=== PATIENT | female | born 2000 | race Caucasian/White ===

== ENCOUNTER 2021-03-15 09:33 | Emergency (ER) | payer MEDICAID, SELFPAY ==
[2021-03-15 11:06] VITALS: BP 115/72; RESP 18; TEMP 36.6; O2SAT 98; BMI 16.0
[2021-03-15 11:43] LABS: MANUAL DIFF FLAG NO
[2021-03-15 11:45] LABS: Basophils Absolute Auto 0.1 X10*3/uL (0.0-0.2); Basophils Percent Auto 0.6 % (0-2); Eosinophils Percent Auto 0.4 % (0-4); Hemoglobin 12.1 g/dl (12.0-16.0); Imm Gran Abs Auto 0.02 X10*3/uL (0.00-0.03); Imm Gran Pct Auto 0.2 % (0.0-0.4); Lymphocytes Absolute Auto 1.3 X10*3/uL (1.2-4.9); Lymphocytes Percent Auto 13.1 % (20-40); Mean Corpuscular HGB Conc 32.7 g/dl (31.0-35.0); Mean Corpuscular Hemoglobin 27.6 pg (27.0-33.0); Mean Corpuscular Volume 84.5 fL (80-98); Mean Platelet Volume 9.7 fL (9.4-12.3); Monocytes Absolute Auto 0.6 X10*3/uL (0.1-1.2); Monocytes Percent Auto 6.4 % (2-11); Neutrophils Absolute Auto 7.9 X10*3/uL (2.0-8.3); Neutrophils Percent Auto 79.3 % (45-73); Platelet Count 263 X10*3/uL (160-400); Red Blood Count 4.38 X10*6/uL (4.20-5.50); Red Cell Distribution Width 14.3 % (11.0-16.0)
[2021-03-15 11:50] LABS: Glucose Urine UA NEG (NEG); Leukocyte Esterase Urine 1+ (NEG); Nitrite Urine POS (NEG); PH 5.5 (5.0-8.0); Specific Gravity - Urine >= 1.030 (1.005-1.025); UACC Culture Trigger YES; Urine Blood 3+ (NEG); Urine Ketones NEG (NEG); Urine Protein 2+ MG/DL (NEG-TRACE)
[2021-03-15 11:54] LABS: Appearance Urine CLOUDY; Color Urine BROWN
[2021-03-15 11:55] LABS: UPreg QC Valid YES; Urine Pregnancy NEGATIVE (NEGATIVE)
[2021-03-15 12:14] LABS: Bacteria Urine TRACE /LPF; RBC Urine TNTC /HPF (0); Squamous Epithelial Cell Urine 1+ /LPF; WBC Urine 30-49 /HPF (0-4)
[2021-03-15 12:15] LABS: Alanine Aminotransferase 9 U/L (0-31); Albumin Level 4.6 g/dL (3.5-5.0); Alkaline Phosphatase 56 U/L (39-117); Anion Gap 13 (12-20); Aspartate Amino Transferase 16 U/L (5-31); Bilirubin Total 0.2 mg/dL (0.0-1.0); Blood Urea Nitrogen 7 mg/dL (9-16); Calcium 9.6 mg/dL (8.4-10.2); Carbon Dioxide 23 mmol/L (22-29); Chloride 109 mmol/L (96-108); Creatinine Clr Calc Pharmacy 71.6; Estimated Glomerular Filt Rate > 60; Glucose Random 87 mg/dL (60-115); Mucus Urine 3+ /LPF; Oval Fat Bodies Urine NOTED; Potassium 3.9 mmol/L (3.3-5.1); Sodium 141 mmol/L (135-145); Total Protein 7.3 g/dL (6.5-8.0)
--- NOTE | 2021-03-15 13:22 | ED_ITS ---
HPI - Female Genitourinary General Chief complaint: Urogenital-Female Stated complaint: Abd pain, burning when urinates Time Seen by Provider: 03/15/21 13:15 History of Present Illness HPI Narrative: Patient is a 21-year-old female complaining of burning urination some blood in her urine for the last 3 days. Increasing frequency. Positive lower abdominal pain. No difficulty with bowel movement. No flank pain. No nausea no vomiting. Patient is from home. History UTIs in the past. Related Data Previous Rx's Medication Instructions Recorded phenazopyridine 200 mg tablet 200 mg PO TID PRN #7 tab 03/15/21 (Pyridium) sulfamethoxazole 800 1 tab PO BID 7 Days #14 tab 03/15/21 mg-trimethoprim 160 mg tablet (Bactrim DS) Allergies Allergy/AdvReac Type Severity Reaction Status Date / Time No Known Allergies Allergy Unverified 04/22/20 19:43 [No Known Allergies*] Review of Systems Review of Systems: No fever no chills Positive frequency Positive pain on urination All systems reviewed otherwise negative [facility] Past Medical History Attestation statement: The following information was validated with the patient. Social History Social History Advance Directives: Yes Advance Directives Information Provided: Yes Advance Directives on File: No Patient : No Physical Exam Vital Signs: Vital Signs: Last Vital Signs Temp 98 F 03/15/21 11:06 Resp 18 03/15/21 11:06 BP 115/72 03/15/21 11:06 Pulse Ox 98 03/15/21 11:06 Body Mass Index 16.0 Appearance: Alert. Oriented X3. No acute distress. Eyes: Pupils equal, round and reactive to light. ENT: Pharynx normal. Neck: Normal inspection. Neck supple. No lymph nodes noted. No crepitus CVS: Normal heart rate and rhythm. Pulses normal. Normal S1 and S2 Respiratory: No respiratory distress. Breath sounds normal. No Wheezing. No rales Abdomen: Soft and nontender. No rigidity. No distention. good BS x4 Skin: Skin warm and dry. Normal skin color. Normal skin turgor. Extremities: No lower extremity edema. Neurovascular intact to all extremities. No Lacerations. No Rash Neuro: Oriented X 3. No motor deficit. No sensory deficit. Moving all extermities. No slurred speech MDM - Female Genitourinary MDM Narrative Medical decision making narrative: Well-appearing no acute distress. Urine grossly infected. Patient not . Will start patient on Bactrim. Pyridium for symptom relief. Will discharge patient home. Currently in stable condition. Lab Data Result diagrams: 03/15/21 11:33 03/15/21 11:33 Labs: Lab Results 03/15/21 03/15/21 03/15/21 Range/Units 11:33 11:33 11:33 WBC 10.0 (4.8-10.8) X10*3/uL RBC 4.38 (4.20-5.50) X10*6/uL Hgb 12.1 (12.0-16.0) g/dl Hct 37.0 (37-47) % MCV 84.5 (80-98) fL MCH 27.6 (27.0-33.0) pg MCHC 32.7 (31.0-35.0) g/dl RDW 14.3 (11.0-16.0) % Plt Count 263 (160-400) X10*3/uL MPV 9.7 (9.4-12.3) fL Immature Gran % (Auto) 0.2 (0.0-0.4) % Neut % (Auto) 79.3 H (45-73) % Lymph % (Auto) 13.1 L (20-40) % Levy % (Auto) 6.4 (2-11) % Eos % (Auto) 0.4 (0-4) % Baso % (Auto) 0.6 (0-2) % Lymph # (Auto) 1.3 (1.2-4.9) X10*3/uL Levy # (Auto) 0.6 (0.1-1.2) X10*3/uL Eos # (Auto) 0.0 (0.0-0.4) X10*3/uL Baso # (Auto) 0.1 (0.0-0.2) X10*3/uL Abs Immat Gran (auto) 0.02 (0.00-0.03) X10*3/uL Absolute Neuts (auto) 7.9 (2.0-8.3) X10*3/uL Absolute Nucleated RBC 0.000 (0.0-0.012) X10*3/uL Nucleated RBC % (auto) 0.0 (0.0-0.2) /100WBC Sodium 141 (135-145) mmol/L Potassium 3.9 (3.3-5.1) mmol/L Chloride 109 H (96-108) mmol/L Carbon Dioxide 23 (22-29) mmol/L Anion Gap 13 (12-20) BUN 7 L (9-16) mg/dL Creatinine 0.79 (0.5-1.4) mg/dL Estim Creat Clear Calc 71.6 Estimated GFR > 60 Random Glucose 87 (60-115) mg/dL Calcium 9.6 (8.4-10.2) mg/dL Total Bilirubin 0.2 (0.0-1.0) mg/dL AST 16 (5-31) U/L ALT 9 (0-31) U/L Alkaline Phosphatase 56 (39-117) U/L Total Protein 7.3 (6.5-8.0) g/dL Albumin 4.6 (3.5-5.0) g/dL Urine Color BROWN Urine Appearance CLOUDY Urine pH 5.5 (5.0-8.0) Ur Specific [place] >= 1.030 H (1.005-1.025) Urine Protein 2+ H (NEG-TRACE) MG/DL Urine Glucose (UA) NEG (NEG) MG/DL Urine Ketones NEG (NEG) MG/DL Urine Blood 3+ H (NEG) Urine Nitrite POS H (NEG) Ur Leukocyte Esterase 1+ H (NEG) Urine RBC TNTC H (0) /HPF Urine WBC 30-49 H (0-4) /HPF Ur Squamous Epith Cells 1+ /LPF Urine Bacteria TRACE /LPF Urine Mucus 3+ /LPF Ur Oval Fat Bodies NOTED (NONE) Urine Test (NEGATIVE) 03/15/21 Range/Units 11:33 WBC (4.8-10.8) X10*3/uL RBC (4.20-5.50) X10*6/uL Hgb (12.0-16.0) g/dl Hct (37-47) % MCV (80-98) fL MCH (27.0-33.0) pg MCHC (31.0-35.0) g/dl RDW (11.0-16.0) % Plt Count (160-400) X10*3/uL MPV (9.4-12.3) fL Immature Gran % (Auto) (0.0-0.4) % Neut % (Auto) (45-73) % Lymph % (Auto) (20-40) % Levy % (Auto) (2-11) % Eos % (Auto) (0-4) % Baso % (Auto) (0-2) % Lymph # (Auto) (1.2-4.9) X10*3/uL Levy # (Auto) (0.1-1.2) X10*3/uL Eos # (Auto) (0.0-0.4) X10*3/uL Baso # (Auto) (0.0-0.2) X10*3/uL Abs Immat Gran (auto) (0.00-0.03) X10*3/uL Absolute Neuts (auto) (2.0-8.3) X10*3/uL Absolute Nucleated RBC (0.0-0.012) X10*3/uL Nucleated RBC % (auto) (0.0-0.2) /100WBC Sodium (135-145) mmol/L Potassium (3.3-5.1) mmol/L Chloride (96-108) mmol/L Carbon Dioxide (22-29) mmol/L Anion Gap (12-20) BUN (9-16) mg/dL Creatinine (0.5-1.4) mg/dL Estim Creat Clear Calc Estimated GFR Random Glucose (60-115) mg/dL Calcium (8.4-10.2) mg/dL Total Bilirubin (0.0-1.0) mg/dL AST (5-31) U/L ALT (0-31) U/L Alkaline Phosphatase (39-117) U/L Total Protein (6.5-8.0) g/dL Albumin (3.5-5.0) g/dL Urine Color Urine Appearance Urine pH (5.0-8.0) Ur Specific [place] (1.005-1.025) Urine Protein (NEG-TRACE) MG/DL Urine Glucose (UA) (NEG) MG/DL Urine Ketones (NEG) MG/DL Urine Blood (NEG) Urine Nitrite (NEG) Ur Leukocyte Esterase (NEG) Urine RBC (0) /HPF Urine WBC (0-4) /HPF Ur Squamous Epith Cells /LPF Urine Bacteria /LPF Urine Mucus /LPF Ur Oval Fat Bodies (NONE) Urine Test NEGATIVE (NEGATIVE) Discharge Plan Discharge Clinical Impression: Urinary tract infection Patient Disposition: Home, Self-Care Instructions: Urinary Tract Infection in Women (ED) Prescriptions: New phenazopyridine [Pyridium] 200 mg tablet 200 mg PO TID PRN (Reason: pain) Qty: 7 RF: 0 sulfamethoxazole-trimethoprim [Bactrim DS] 800-160 mg tablet 1 tab PO BID 7 Days Qty: 14 RF: 0 Referrals: Physician,Unknown [Primary Care Provider] - 2 days
== END 2021-03-15 13:45 | disposition home or self-care (01) ==
PROVIDERS: Emergency Provider Emergency Medicine Emergency Medical Services
DX: N39.0 Urinary tract infection, site not specified (principal); R10.30 Lower abdominal pain, unspecified
CPT/HCPCS: 36415; 80053; 81001; 81025; 85025; 87086; 99283

== ENCOUNTER 2021-03-29 08:59 | Emergency (ER) | payer MEDICAID, SELFPAY ==
--- NOTE | ~2021-03-29 | XR_ITS ---
EXAMINATION: XR CHEST CLINICAL INFORMATION: Chest pain. COMPARISON: None TECHNIQUE: Frontal view of the chest was obtained. FINDINGS: No significant abnormality is noted involving the heart, lungs, mediastinum, bony thorax or soft tissues. XR/XR chest 1V IMPRESSION: No acute cardiopulmonary process.
[2021-03-29 10:39] VITALS: BP 118/84; PULSE 89; RESP 18; TEMP 37.1; O2SAT 96; BMI 16.0
[2021-03-29 12:07] VITALS: BP 105/69; PULSE 91; RESP 16; TEMP 36.7; O2SAT 99
--- NOTE | 2021-03-29 12:35 | ECG_ITS ---
Test Reason : CHEST PAIN Blood Pressure : / mmHG Vent. Rate : 075 BPM Atrial Rate : 075 BPM P-R Int : 160 ms QRS Dur : 070 ms QT Int : 400 ms P-R-T Axes : 075 081 056 degrees QTc Int : 446 ms Normal sinus rhythm Low voltage QRS Nonspecific T wave abnormality Abnormal ECG No previous ECGs available Referred By: Toi Gil Electronically Signed By:HERO BAH
[2021-03-29 13:01] LABS: COVID-19 Test Positive (Negative)
--- NOTE | 2021-03-29 14:10 | ED_ITS ---
HPI - General Adult General Chief complaint: General Medical Stated complaint: sore throat, cough, diff breathing Time Seen by Provider: 03/29/21 12:35 History of Present Illness HPI narrative: Patient complains of cough body aches fever for past 2 days In addition she complains of an episode last night where she was startled awake and had some pain in her chest and felt like her heart was racing as well as some tingling in her fingertips and feeling anxious, she does not have this fe rodrigo now Related Data Previous Rx's Medication Instructions Recorded phenazopyridine 200 mg tablet 200 mg PO TID PRN #7 tab 03/15/21 (Pyridium) sulfamethoxazole 800 1 tab PO BID 7 Days #14 tab 03/15/21 mg-trimethoprim 160 mg tablet (Bactrim DS) cetirizine 10 mg capsule (Zyrtec) 10 mg PO DAILY #14 cap 04/12/21 fluticasone propionate 50 2 spray INTRANASAL DAILY #16 g 04/12/21 mcg/actuation nasal spray,suspension (Flonase Allergy Relief) Allergies Allergy/AdvReac Type Severity Reaction Status Date / Time No Known Allergies Allergy Unverified 04/22/20 19:43 [No Known Allergies*] Review of Systems Review of Systems: Positive for cough and body aches as well as an episode of palpitations associated with some chest pain and anxiety Negatives are no fever no chills no dizziness no weakness no headache no sore throat no neck pain no shortness of breath no sputum no exertional chest pain no sweating no nausea vomiting no abdominal pain no calf pain or swelling no numbness weakness Yes all other systems are reviewed and are negative [facility] Past Medical History Source: nursing notes reviewed Medical History (Updated 04/13/21 @ 00:02 by Jack Jang) Hypoglycemia Social History Social History Advance Directives: No Advance Directives Information Provided: No Patient : No Physical Exam Vital Signs: Vital Signs: Last Vital Signs Temp 98.1 F 03/29/21 12:07 Pulse 91 03/29/21 12:07 Resp 16 03/29/21 12:07 BP 105/69 03/29/21 12:07 Pulse Ox 99 03/29/21 12:07 Body Mass Index 16.0 General appearance no acute distress The eyes are clear no redness or discharge The pharynx is clear with no redness swelling or exudate Neck is supple Chest clear to auscultation bilateral Heart no murmur Abdomen soft nontender Extremities no calf swelling no edema no calf tenderness Skin no rashes Neuro no focal deficits Course Course Course Narrative: EKG was normal sinus rhythm with a rate of 75, intervals were normal, no acute ischemic change Chest x-ray was normal COVID testing was positive Patient's brief episode of waking in the night with palpitations and a feeling of chest heaviness with normal EKG, normal vital signs, all negative by PERC rule is likely to have had a brief anxiety reaction Otherwise well-appearing patient is informed of the results and is discharged Medical Decision Making Lab Data Labs: Lab Results 03/29/21 Range/Units 12:43 COVID-19 (MELISSA) Positive A (Negative) COVID-19 Clin Com See Note Discharge Plan Discharge Clinical Impression: COVID-19 Patient Disposition: Home, Self-Care Additional Instructions: EKG and chest x-ray did not show any significant abnormality Your chest pain after being woken last night was probably an anxiety reaction Our testing for COVID was positive so you need to wear a mask around people, keep a distance from people a specially elderly people Return any time any worse condition or any concerns You could use Tylenol or Motrin [id number] if needed for any aches and pains Prescriptions: No Action phenazopyridine [Pyridium] 200 mg tablet 200 mg PO TID PRN (Reason: pain) Qty: 7 RF: 0 sulfamethoxazole-trimethoprim [Bactrim DS] 800-160 mg tablet 1 tab PO BID 7 Days Qty: 14 RF: 0 Zyrtec 10 mg capsule 10 mg PO DAILY Qty: 14 RF: 0 fluticasone propionate [Flonase Allergy Relief] 50 mcg/actuation spray,suspension 2 spray intranasal DAILY Qty: 16 RF: 0 Stand Alone Forms: Work/School Release Interventions: ED Discharge Assessment Last Done: 03/29/21 14:16 Discharge Date/Time: 03/29/21 14:17
== END 2021-03-29 14:17 | disposition home or self-care (01) ==
PROVIDERS: Physician Assistant Medical; Emergency Provider Emergency Medicine
DX: U07.1 COVID-19 (principal)
CPT/HCPCS: 36415; 71045; 87635; 93005; 99283; 99284

== ENCOUNTER 2021-04-12 08:53 | Emergency (ER) | payer MEDICAID, SELFPAY ==
[2021-04-12 09:11] VITALS: BP 114/70; PULSE 94; RESP 16; TEMP 37; O2SAT 98; BMI 19.5
--- NOTE | 2021-04-12 10:00 | ED_ITS ---
HPI - General Adult General Chief complaint: General Medical Stated complaint: + covid - headache, ear problem Time Seen by Provider: 04/12/21 09:46 Source: patient Mode of arrival: ambulatory History of Present Illness HPI narrative: 21-year-old female COVID-19 positive on 03/29 presenting to the ED complaining of intermittent right ear muffled hearing since yesterday and scratchy throat. Requesting note to return to work. Denies fever, chills, SOB, CP, recent travel, abdominal pain, drainage from ear/swimming, difficulty swallowing Onset (ago): week(s) Related Data Previous Rx's Medication Instructions Recorded phenazopyridine 200 mg tablet 200 mg PO TID PRN #7 tab 03/15/21 (Pyridium) sulfamethoxazole 800 1 tab PO BID 7 Days #14 tab 03/15/21 mg-trimethoprim 160 mg tablet (Bactrim DS) cetirizine 10 mg capsule (Zyrtec) 10 mg PO DAILY #14 cap 04/12/21 fluticasone propionate 50 2 spray INTRANASAL DAILY #16 g 04/12/21 mcg/actuation nasal spray,suspension (Flonase Allergy Relief) Allergies Allergy/AdvReac Type Severity Reaction Status Date / Time No Known Allergies Allergy Unverified 04/22/20 19:43 [No Known Allergies*] Review of Systems Review of Systems: Constitutional: No Fever, No Chills ENT/Mouth: + Ear Pain, + Nasal Congestion, + Sinus Pain, No Hoarseness, + sore throat, + Rhinorrhea, No Swallowing Difficulty Cardiovascular: No Chest Pain, No SOB Respiratory: No Cough, No Sputum, No Wheezing Gastrointestinal: No Nausea, No Vomiting, No Abdominal pain Genitourinary:, No Dysuria, No Urinary Frequency, No Hematuria, No Flank Pain Musculoskeletal: No joint pain, No Myalgias, No Joint Swelling Skin: No Skin Lesions, No rash Neuro: No Weakness, No Numbness, No Paresthesias, +intermittent ELIZALDE Yes all other systems are reviewed and are negative [facility] Past Medical History Attestation statement: The following information was validated with the patient. Medical History (Updated 04/12/21 @ 10:00 by BRYAN Pickett) Hypoglycemia Social History Social History Advance Directives: No Advance Directives Information Provided: No Patient : No Physical Exam Vital Signs: Vital Signs: Last Vital Signs Temp 98.6 F 04/12/21 09:11 Pulse 94 04/12/21 09:11 Resp 16 04/12/21 09:11 BP 114/70 04/12/21 09:11 Pulse Ox 98 04/12/21 09:11 Body Mass Index 19.5 Const: General: cooperative and healthy appearing O rientation/consciousness: patient oriented x3 Limitations: no limitations HENMT: Head: Yes normal to inspection Ears: hearing grossly normal bilaterally, external ears normal, TM's normal bilaterally, TM normal on the right, mastoids normal and no periauricular adenopathy General nose exam: Normal external nose present Face and sinus: Yes normal facial exam Mouth: Normal oral and palatal mucosa present Throat: Yes posterior oropharynx normal, Yes tonsils normal, Yes uvula midline, No peritonsillar mass and No uvular edema Eyes: General: appearance normal, both eyes and all related structures EOM: EOMs intact bilaterally Neck: Neck: Yes normal visual inspection, Yes full ROM, Yes no lymphadenopathy, Yes no meningeal signs, Yes trachea midline and Yes supple Resp: Effort & Inspection: normal respiratory effort, not labored and no respiratory distress Cardio: Rate: regular rate Skin: Rashes: no rashes Wounds: no wounds Neuro: General: patient oriented x3 and no meningeal signs Gait exam (Neuro): Normal gait present Extrem: General: Yes normal to inspection Medical Decision Making MDM Narrative Medical decision making narrative: 21-year-old female COVID-19 positive on 03/29 presenting to the ED complaining of intermittent right ear muffled hearing since yesterday and scratchy throat. Requesting note to return to work. On exam VSS, NAD/well-appearing, exam nonfocal. Likely viral syndrome/postnasal drip. No evidence of otitis media/externa. Mastoids WNL Will give Flonase/Zyrtec Discharge Plan Discharge Clinical Impression: Acute viral syndrome Patient Disposition: Home, Self-Care Instructions: Viral Syndrome (ED) Additional Instructions: Flonase a nasal decongestant spray Zyrtec is for allergies/will help clear her sinuses You have been self isolated for 14 days, you are cleared to return to work Prescriptions: New Zyrtec 10 mg capsule 10 mg PO DAILY Qty: 14 RF: 0 fluticasone propionate [Flonase Allergy Relief] 50 mcg/actuation spray,suspension 2 spray intranasal DAILY Qty: 16 RF: 0 No Action phenazopyridine [Pyridium] 200 mg tablet 200 mg PO TID PRN (Reason: pain) Qty: 7 RF: 0 sulfamethoxazole-trimethoprim [Bactrim DS] 800-160 mg tablet 1 tab PO BID 7 Days Qty: 14 RF: 0 Referrals: [facility] [Primary Care Provider] - 2 days Stand Alone Forms: Work/School Release
== END 2021-04-12 10:30 | disposition home or self-care (01) ==
PROVIDERS: Emergency Provider Emergency Medicine
DX: B34.9 Viral infection, unspecified (principal)
CPT/HCPCS: 99283

== ENCOUNTER 2022-02-02 11:16 | Emergency (ER) | payer MEDICAID, SELFPAY ==
[2022-02-02 11:30] VITALS: BP 112/71; PULSE 74; RESP 14; TEMP 36.6; O2SAT 100; BMI 16.0
[2022-02-02 11:53] LABS: Appearance Urine HAZY; Color Urine YELLOW; Glucose Urine UA NEG (NEG); Leukocyte Esterase Urine NEG (NEG); Nitrite Urine NEG (NEG); Specific Gravity - Urine 1.025 (1.005-1.025); Urine Blood NEG (NEG); Urine Ketones 5 MG/DL (NEG); Urine Protein NEG (NEG-TRACE)
[2022-02-02 11:54] LABS: UPreg QC Valid YES; Urine Pregnancy NEGATIVE (NEGATIVE)
[2022-02-02 12:21] LABS: COVID-19 Test Negative (Negative)
[2022-02-02 12:22] LABS: IDNOW Serial# 55D5AD1C; Influenza A Negative (Negative); Influenza B2 Negative (Negative)
== END 2022-02-02 15:48 | disposition left against medical advice (07) ==
LOC: HO.ED 14:57
PROVIDERS: Emergency Provider Emergency Medicine
DX: R51.9 Headache, unspecified (principal); R42 Dizziness and giddiness; R11.0 Nausea; Z20.822 Contact with and (suspected) exposure to COVID-19
CPT/HCPCS: 81003; 81025; 87502; 87635; 99282; 99283

== ENCOUNTER 2022-08-19 23:22 | Emergency (ER) | payer MEDICAID, SELFPAY ==
[2022-08-19 23:30] VITALS: BP 130/88; PULSE 118; RESP 16; TEMP 36.9; O2SAT 98; BMI 16.2
[2022-08-19 23:42] VITALS: BP 107/72; PULSE 82; RESP 16; TEMP 36.9; O2SAT 97
--- NOTE | 2022-08-20 00:07 | MHC.EDTECH ---
this pct assumed care of patient at 2330 ,vitals sign taken ,call [facility] within reach .
--- NOTE | 2022-08-20 00:33 | ED_ITS ---
HPI - Skin/Abscess/Foreign Bdy General Chief complaint: Skin/Abscess/Foreign Body Stated complaint: lower extremity infection? Time Seen by Provider: 08/20/22 00:13 Source: patient Mode of arrival: ambulatory Limitations: no limitations History of Present Illness HPI narrative: Patient has small ingrown hair on the right leg for last 2- 3 days got worse now with surrounding redness and pain Related Data Previous Rx's Medication Instructions Recorded phenazopyridine 200 mg tablet 200 mg PO TID PRN pain 6 doses #7 03/15/21 (Pyridium) tabs sulfamethoxazole 800 1 tab PO BID 7 days #14 tabs 03/15/21 mg-trimethoprim 160 mg tablet (Bactrim DS) cetirizine 10 mg capsule (Zyrtec) 10 mg PO DAILY #14 caps 04/12/21 fluticasone propionate 50 2 spray intranasal DAILY #16 grams 04/12/21 mcg/actuation nasal spray,suspension (Flonase Allergy Relief) cephalexin 500 mg capsule 500 mg PO QID 10 days #40 caps 08/20/22 doxycycline hyclate 100 mg tablet 100 mg PO BID #20 tabs 08/20/22 mupirocin 2 % topical ointment 1 appl topical BID #15 grams 08/20/22 Allergies Allergy/AdvReac Type Severity Reaction Status Date / Time No Known Allergies Allergy Verified 08/19/22 23:36 [No Known Allergies*] Review of Systems Review of Systems: Yes all other systems are reviewed and are negative [facility] Past Medical History Medical History Hypoglycemia Social History Social History Advance Directives: No Advance Directives Information Provided: No Physical Exam Vital Signs: Vital Signs: Last Vital Signs Temp 98.5 F 08/19/22 23:42 Pulse 82 08/19/22 23:42 Resp 16 08/19/22 23:42 BP 107/72 08/19/22 23:42 Pulse Ox 97 08/19/22 23:42 O2 Del Method 08/19/22 23:42 BMI result Body Mass Index 16.2 Const: General: cooperative and healthy appearing Extrem: Upper/lower leg/hip images: 1. Small folliculitis surrounding cellulitis size of a nickel Medications Administered Discontinued Medications Generic Name Dose Route Start Last Admin Trade Name Koq PRN Reason Stop Dose Admin Bacitracin 1 appl 08/20/22 00:51 08/20/22 01:08 Bacitracin Oint 14 Gm Tube TOPICAL 08/20/22 00:52 1 appl ONCE ONE Administration Protocol Cephalexin HCl 500 mg 08/20/22 00:51 08/20/22 01:06 Cephalexin 500 Mg Capsule PO 08/20/22 00:52 500 mg ONCE ONE Administration Doxycycline Monohydrate 100 mg 08/20/22 00:51 08/20/22 01:06 Doxycycline Monohydrate 100 Mg Capsule PO 08/20/22 00:52 100 mg ONCE ONE Administration Medical Decision Making Medical Decision Making [facility] Narrative: Patient with small folliculitis with surrounding cellulitis needle was used to puncture it and small amount of pus expressed discharge patient home on doxycycline and cephalexin Discharge Plan Discharge Clinical Impression: Staph skin infection Patient Disposition: Home, Self-Care Instructions: Cellulitis (ED), Folliculitis (ED) Additional Instructions: Take antibiotic as prescribed Local care as advised Prescriptions: New cephalexin 500 mg capsule 500 mg PO QID 10 Days Qty: 40 0RF doxycycline hyclate 100 mg tablet 100 mg PO BID Qty: 20 0RF mupirocin 2 % ointment 1 appl topical BID Qty: 15 0RF No Action phenazopyridine [Pyridium] 200 mg tablet 200 mg PO TID PRN (Reason: pain) Qty: 7 0RF sulfamethoxazole-trimethoprim [Bactrim DS] 800-160 mg tablet 1 tab PO BID 7 Days Qty: 14 0RF Zyrtec 10 mg capsule 10 mg PO DAILY Qty: 14 0RF fluticasone propionate [Flonase Allergy Relief] 50 mcg/actuation spray ,suspension 2 spray intranasal DAILY Qty: 16 0RF Rx Instructions: administer into each nostril Interventions: ED Discharge Assessment Last Done: 08/20/22 01:09 Discharge Date/Time: 08/20/22 01:09
--- NOTE | 2022-08-20 01:00 | MHC.EDTECH ---
bacitracin ointment and bandage apple to patient right leg below the knee .
[2022-08-20] MEDS: cephALEXin 500 MG CAPSULE PO (01:06)
[2022-08-20] MEDS: Doxycycline Monohydrate 100 MG CAPSULE PO (01:06)
[2022-08-20] MEDS: Bacitracin Oint 14 GM TUBE 1 APPL TOPICAL (01:08)
== END 2022-08-20 01:09 | disposition home or self-care (01) ==
PROVIDERS: Emergency Provider Internal Medicine
DX: L73.1 Pseudofolliculitis barbae (principal); Z79.899 Other long term (current) drug therapy
CPT/HCPCS: 99283

== ENCOUNTER 2023-02-09 20:26 | Emergency (ER) | payer MEDICAID, SELFPAY ==
[2023-02-09 20:29] VITALS: BP 102/64; PULSE 86; RESP 20; TEMP 36.7; O2SAT 94; BMI 15.9
--- NOTE | 2023-02-09 21:41 | ED.FEMALEGU ---
HPI - Female Genitourinary General Chief complaint: Abdominal Pain Stated complaint: ?UTI Time Seen by Provider: 02/09/23 21:37 Source: patient Mode of arrival: ambulatory Limitations: no limitations History of Present Illness HPI Narrative: Patient history of recurrent UTI been having dysuria for last 2 days with frequency and slight amount of blood when she urinates took azo over the counter much response history of similar UTI about 2 months ago no vaginal discharge no history of kidney stone no fever no chills no nausea no vomiting Related Data Previous Rx's Medication Instructions Recorded phenazopyridine 200 mg tablet 200 mg PO TID PRN pain 6 doses #7 03/15/21 (Pyridium) tabs sulfamethoxazole 800 1 tab PO BID 7 days #14 tabs 03/15/21 mg-trimethoprim 160 mg tablet (Bactrim DS) cetirizine 10 mg capsule (Zyrtec) 10 mg PO DAILY #14 caps 04/12/21 fluticasone propionate 50 2 spray intranasal DAILY #16 grams 04/12/21 mcg/actuation nasal spray,suspension (Flonase Allergy Relief) cephalexin 500 mg capsule 500 mg PO QID 10 days #40 caps 08/20/22 doxycycline hyclate 100 mg tablet 100 mg PO BID #20 tabs 08/20/22 mupirocin 2 % topical ointment 1 appl topical BID #15 grams 08/20/22 cefuroxime axetil 250 mg tablet 250 mg PO BID 7 days #14 tabs 02/09/23 Allergies Allergy/AdvReac Type Severity Reaction Status Date / Time No Known Allergies Allergy Verified 08/19/22 23:36 [No Known Allergies*] Review of Systems Review of Systems: Yes all other systems are reviewed and are negative PMFSH Past Medical History Medical History Hypoglycemia Social History Social History Alcohol intake: never Smoked in Last 30 Days: No Use of substances other than those prescribed or required for medical reasons: No Advance Directives: No Advance Directives Information Provided: No Patient : No Physical Exam Vital Signs: Vital Signs: Last Vital Signs Temp 98.1 F 02/09/23 22:35 Pulse 84 02/09/23 22:35 Resp 19 02/09/23 22:35 BP 110/66 02/09/23 22:35 Pulse Ox 98 02/09/23 22:35 O2 Del Method Room Air 02/09/23 22:35 BMI result Body Mass Index 15.9 Appearance: Alert. Oriented X3. No acute distress. ENT: Pharynx normal. Oral Mucosa moist Neck: Normal inspection. Neck supple. CVS: Normal heart rate and rhythm. Pulses normal. Respiratory: No respiratory distress. Equal air entry bilateral, no wheezing/rales/rhonchi Abdomen: Soft and nontender. Bowel sounds are present, no mass palpable, no CVA tenderness Skin: Skin warm and dry. Normal skin color. Normal skin turgor. Extremities: No lower extremity edema. No calf tenderness Neuro: Oriented X 3. Medications Administered Discontinued Medications Generic Name Dose Route Start Last Admin Trade Name Freq PRN Reason Stop Dose Admin Cefuroxime Axetil 500 mg 02/09/23 21:54 02/09/23 22:28 Cefuroxime Axetil 500 Mg Tablet PO 02/09/23 21:55 500 mg ONCE ONE Administration Medical Decision Making Medical Decision Making [facility] Narrative: Patient with Acute cystitis discharge patient home on Ceftin Lab Data [facility] Lab Attestation statement: I reviewed the patient's lab results. 02/09/23 20:57 02/09/23 20:57 Labs: Lab Results 02/09/23 02/09/23 02/09/23 Range/Units 20:57 20:57 21:02 WBC 9.4 (4.8-10.8) X10*3/uL RBC 3.96 L (4.20-5.50) X10*6/uL Hgb 11.5 L (12.0-16.0) g/dl Hct 34.7 L (37.0-47.0) % MCV 87.6 (80.0-98.0) fL MCH 29.0 (27.0-33.0) pg MCHC 33.1 (31.0-35.0) g/dl RDW 12.7 (11.0-16.0) % Plt Count 249 (160-400) X10*3/uL MPV 9.7 (9.4-12.3) fL Absolute Nucleated RBC 0.000 (0.0-0.012) X10*3/uL Nucleated RBC % (auto) 0.0 (0.0-0.2) /100WBC Sodium 140 (135-145) mmol/L Potassium 4.3 (3.3-5.1) mmol/L Chloride 108 (96-108) mmol/L Carbon Dioxide 25 (22-29) mmol/L Anion Gap 11 L (12-20) BUN 11 (9-16) mg/dL Creatinine 0.82 (0.5-1.4) mg/dL Estim Creat Clear Calc 69.3 Estimated GFR > 60 Random Glucose 88 (60-115) mg/dL Calcium 9.3 (8.4-10.2) mg/dL Total Bilirubin 0.7 (0.0-1.0) mg/dL AST 15 (5-31) U/L ALT 7 (0-31) U/L Alkaline Phosphatase 55 (39-117) U/L Total Protein 6.8 (6.5-8.0) g/dL Albumin 4.2 (3.5-5.0) g/dL Urine Color Dark Yellow Urine Appearance Clear Urine pH 6.5 (5.0-9.0) Ur Specific Inez <= 1.005 (1.005-1.025) Urine Protein Negative (Neg-Trace) mg/dL Urine Glucose (UA) Negative (Negative) mg/dL Urine Ketones Negative (Negative) mg/dL Urine Blood Large (3+) H (Negative) Urine Nitrite Positive H (Negative) Ur Leukocyte Esterase Moderate (2+) H (Negative) Urine RBC 0-2 (0-2) /HPF Urine WBC 21-50 H (0-5) /HPF Ur Squamous Epith Cells 0-2 (0-2) /HPF Urine Bacteria None Seen (None Seen) Hyaline Casts 0-2 (0-2) /LPF Urine Test (NEGATIVE) 02/09/23 Range/Units 21:02 WBC (4.8-10.8) X10*3/uL RBC (4.20-5.50) X10*6/uL Hgb (12.0-16.0) g/dl Hct (37.0-47.0) % MCV (80.0-98.0) fL MCH (27.0-33.0) pg MCHC (31.0-35.0) g/dl RDW (11.0-16.0) % Plt Count (160-400) X10*3/uL MPV (9.4-12.3) fL Absolute Nucleated RBC (0.0-0.012) X10*3/uL Nucleated RBC % (auto) (0.0-0.2) /100WBC Sodium (135-145) mmol/L Potassium (3.3-5.1) mmol/L Chloride (96-108) mmol/L Carbon Dioxide (22-29) mmol/L Anion Gap (12-20) BUN (9-16) mg/dL Creatinine (0.5-1.4) mg/dL Estim Creat Clear Calc Estimated GFR Random Glucose (60-115) mg/dL Calcium (8.4-10.2) mg/dL Total Bilirubin (0.0-1.0) mg/dL AST (5-31) U/L ALT (0-31) U/L Alkaline Phosphatase (39-117) U/L Total Protein (6.5-8.0) g/dL Albumin (3.5-5.0) g/dL Urine Color Urine Appearance Urine pH (5.0-9.0) Ur Specific Inez (1.005-1.025) Urine Protein (Neg-Trace) mg/dL Urine Glucose (UA) (Negative) mg/dL Urine Ketones (Negative) mg/dL Urine Blood (Negative) Urine Nitrite (Negative) Ur Leukocyte Esterase (Negative) Urine RBC (0-2) /HPF Urine WBC (0-5) /HPF Ur Squamous Epith Cells (0-2) /HPF Urine Bacteria (None Seen) Hyaline Casts (0-2) /LPF Urine Test NEGATIVE (NEGATIVE) Discharge Plan Discharge Clinical Impression: UTI (urinary tract infection) Patient Disposition: Home, Self-Care Instructions: Urinary Tract Infection in Women (ED), Urinary Tract Infection in Women (DC) Additional Instructions: Drink plenty of fluid Antibiotic as prescribed Follow with PCP if not better Prescriptions: New cefuroxime axetil 250 mg tablet 250 mg PO BID 7 Days Qty: 14 0RF No Action phenazopyridine [Pyridium] 200 mg tablet 200 mg PO TID PRN (Reason: pain) Qty: 7 0RF sulfamethoxazole-trimethoprim [Bactrim DS] 800-160 mg tablet 1 tab PO BID 7 Days Qty: 14 0RF Zyrtec 10 mg capsule 10 mg PO DAILY Qty: 14 0RF fluticasone propionate [Flonase Allergy Relief] 50 mcg/actuation spray,suspension 2 spray intranasal DAILY Qty: 16 0RF Rx Instructions: administer into each nostril cephalexin 500 mg capsule 500 mg PO QID 10 Days Qty: 40 0RF doxycycline hyclate 100 mg tablet 100 mg PO BID Qty: 20 0RF mupirocin 2 % ointment 1 appl topical BID Qty: 15 0RF Stand Alone Forms: Work/School Release Interventions: ED Discharge Assessment Last Done: 02/09/23 23:03 Discharge Date/Time: 02/09/23 23:18
[2023-02-09 22:35] VITALS: BP 110/66; PULSE 84; RESP 19; TEMP 36.7; O2SAT 98
== END 2023-02-09 23:18 | disposition home or self-care (01) ==
PROVIDERS: Emergency Provider Internal Medicine; PCP Nurse Practitioner Family
DX: N39.0 Urinary tract infection, site not specified (principal); Z79.899 Other long term (current) drug therapy
CPT/HCPCS: 36415; 80053; 81001; 81025; 85027; 87086; 99283; 99284

== ENCOUNTER 2023-02-23 06:57 | Emergency (ER) | payer MEDICAID, SELFPAY ==
--- NOTE | ~2023-02-23 | XR_ITS ---
EXAMINATION: XR CHEST CLINICAL INFORMATION: Cough. COMPARISON: 03/29/2021 TECHNIQUE: Frontal view of the chest was obtained. FINDINGS: The lungs are well expanded. There is no focal consolidation, edema, or effusion. No pneumothorax. The cardiomediastinal silhouette is within normal limits. No acute osseous abnormality. XR/XR chest 1V IMPRESSION: Clear lungs.
[2023-02-23 07:16] VITALS: BP 120/74; PULSE 97; RESP 16; TEMP 37.1; O2SAT 100; BMI 15.7
[2023-02-23 08:01] VITALS: BP 112/73; PULSE 79; RESP 18; TEMP 37.2; O2SAT 100
--- NOTE | 2023-02-23 08:07 | PC.NURSE ---
pt a&ox3. respirations even and unlabored, lung sounds clear bilaterally with a slight cough. pt reports headache 10/10 that feels like pressure. vss.
[2023-02-23 08:14] LABS: COVID-19 Test Positive (Negative); IDNOW Serial# 08D9AD1C; IDNOW Serial# BCCEAD1C; Strep A Nucleic Acid Negative (Negative)
[2023-02-23 08:21] LABS: IDNOW Serial# 55D5AD1C; Influenza A Negative (Negative); Influenza B2 Negative (Negative)
--- NOTE | 2023-02-23 10:18 | ED.GENADULT ---
HPI - General Adult General Chief complaint: General Medical Stated complaint: Sore throat/Cough/Fever Time Seen by Provider: 02/23/23 07:05 Source: patient Mode of arrival: ambulatory Limitations: no limitations History of Present Illness HPI narrative: 23-year-old female presents to ED with sore throat, fever, dry cough and body aches since yesterday. Patient states boyfriend also have similar symptoms. Patient denies any leg swelling, calf pain, coughing up blood, pleurisy, or shortness of breath. Related Data Previous Rx's Medication Instructions Recorded phenazopyridine 200 mg tablet 200 mg PO TID PRN pain 6 doses #7 03/15/21 (Pyridium) tabs sulfamethoxazole 800 1 tab PO BID 7 days #14 tabs 03/15/21 mg-trimethoprim 160 mg tablet (Bactrim DS) cetirizine 10 mg capsule (Zyrtec) 10 mg PO DAILY #14 caps 04/12/21 fluticasone propionate 50 2 spray intranasal DAILY #16 grams 04/12/21 mcg/actuation nasal spray,suspension (Flonase Allergy Relief) cephalexin 500 mg capsule 500 mg PO QID 10 days #40 caps 08/20/22 doxycycline hyclate 100 mg tablet 100 mg PO BID #20 tabs 08/20/22 mupirocin 2 % topical ointment 1 appl topical BID #15 grams 08/20/22 cefuroxime axetil 250 mg tablet 250 mg PO BID 7 days #14 tabs 02/09/23 naproxen 500 mg tablet 500 mg PO BID PRN pain 7 days #14 02/23/23 tabs Allergies Allergy/AdvReac Type Severity Reaction Status Date / Time No Known Allergies Allergy Verified 08/19/22 23:36 [No Known Allergies*] Review of Systems Review of Systems: Cough sore throat fever Yes all other systems are reviewed and are negative PMFSH Past Medical History Medical History Hypoglycemia Social History Social History Alcohol intake: current Alcohol intake frequency: holidays/special occasions only Smoked in Last 30 Days: No Use of substances other than those prescribed or required for medical reasons: No Advance Directives: No Patient : No Physical Exam ED Vital Signs: Vital Signs - 24 hr 02/23/23 07:16 02/23/23 08:01 Temperature 98.7 F 98.9 F Pulse Rate 97 79 Respiratory Rate 16 18 Blood Pressure 120/74 112/73 Pulse Oximetry 100 100 Oxygen Delivery Method Room Air Room Air BMI result Body Mass Index 15.7 Const General: cooperative, healthy appearing, comfortable, no acute distress, well developed, alert, awake and Physically active Orientation/consciousness: oriented to person, oriented to place, oriented to time and patient oriented x3 HENNM Head: Yes normal to inspection, Yes No palpable skull fracture present, Yes normocephalic, Yes atraumatic and No abrasion Ears: hearing grossly normal bilaterally, external ears normal, TM's normal bilaterally, TM normal on the right, TM normal on the left, EAC's normal, mastoids normal and no periauricular adenopathy Throat: Yes posterior oropharynx normal, Yes tonsils normal and Yes uvula midline Eyes General: appearance normal, both eyes and all related structures Neck Neck: Yes normal visual inspection, Yes full ROM, Yes no lymphadenopathy, Yes no meningeal signs, Yes trachea midline, Yes supple, No anterior neck swelling and No tender Chest Chest palpation & inspection: normal inspection of the chest Chest/axillae images: 1. Positive for chest wall tenderness on palpation. Negative for any crepitus, erythema, ecchymosis, or deformity. Resp Effort & Inspection: normal respiratory effort and able to speak in complete sentences Auscultation: clear to auscultation bilaterally Cardio Jugular venous distension: no JVD Heart sounds: S1 normal heart sound present and S2 normal heart sound present GI Inspection: Yes normal to inspection and No abdominal wall ecchymosis Palpation (GI): Soft to palpation, not firm, nontender, no guarding and not rigid General: No CVA tenderness and Yes no CVA tenderness Back/Spine/Pelvis Back: no CVA tenderness, No CVA tenderness and No back tenderness Skin General skin exam: no rashes or lesions noted and elasticity normal Neuro General: oriented to person, oriented to place, oriented to time, patient oriented x3, gait normal, tone normal, moves all extremities, Normal light touch and pain sensation, no meningeal signs, no focal motor deficits, CN's II-XI intact bilaterally and normal sensation to monofilament Extrem Other: Bilateral lower extremity negative for swelling, pitting edema, or calf tenderness. General: Yes normal to inspection and Yes full ROM Psych Appearance: grossly normal, well kempt and not disheveled Medical Decision Making Medical Decision Making MDM Narrative: 23-year-old female presents to ED for sore throat fever and cough with body aches. Patient's boyfriend have similar symptoms. Patient positive for COVID. X-ray negative pneumonia. Patient vital signs stable. Patient negative strep and influenza. Patient not vaccinated. Differential Diagnosis Differential Diagnoses: The differential diagnosis associated with the presentation includes (COVID, influenza, pneumonia, tonsillitis, pharyngitis, peritonsillar abscess, retropharyngeal abscess, Stephan angina) Admission/Observation Consideration of admission/observation: Escalation of care including admission/observation considered Lab Data [facility] Lab Attestation statement: I reviewed the patient's lab results. Labs: Lab Results 02/23/23 02/23/23 02/23/23 Range/Units 07:49 07:49 07:49 COVID-19 (MELISSA) Positive A (Negative) COVID-19 Clin Com See Note Influenza Type A (BO) Negative (Negative) Influenza Type B (BO) Negative (Negative) Influenza A & B Note See Note S. pyogenes GrpA BO Negative (Negative) Independent Interpretation I performed an independent interpretation of an: Plain X-Ray Radiology Impression Discussion of test interpretation with radiology: I have reviewed the radiologist's reading. External Record Review External record reviewed: Other (Prior ED visit) Prescription Management I considered prescription management with: Pain Medication Discharge Plan Discharge Clinical Impression: COVID-19 Patient Disposition: Home, Self-Care Instructions: COVID-19 (Coronavirus Disease 2019) (ED) Additional Instructions: You are positive for COVID. Return to the ED immediately for any chest pain, shortness of breath, coughing up blood, leg swelling, calf pain, weakness, or any other concerning symptoms. Please follow the primary care provider Prescriptions: New naproxen 500 mg tablet 500 mg PO BID PRN (Reason: pain) 7 Days Qty: 14 0RF No Action phenazopyridine [Pyridium] 200 mg tablet 200 mg PO TID PRN (Reason: pain) Qty: 7 0RF sulfamethoxazole-trimethoprim [Bactrim DS] 800-160 mg tablet 1 tab PO BID 7 Days Qty: 14 0RF Zyrtec 10 mg capsule 10 mg PO DAILY Qty: 14 0RF fluticasone propionate [Flonase Allergy Relief] 50 mcg/actuation spray,suspension 2 spray intranasal DAILY Qty: 16 0RF Rx Instructions: administer into each nostril cephalexin 500 mg capsule 500 mg PO QID 10 Days Qty: 40 0RF doxycycline hyclate 100 mg tablet 100 mg PO BID Qty: 20 0RF mupirocin 2 % ointment 1 appl topical BID Qty: 15 0RF cefuroxime axetil 250 mg tablet 250 mg PO BID 7 Days Qty: 14 0RF Stand Alone Forms: Work/School Release Interventions: ED Discharge Assessment Last Done: 02/23/23 10:41 Discharge Date/Time: 02/23/23 10:42 Print Language: Guyanese
== END 2023-02-23 10:42 | disposition home or self-care (01) ==
PROVIDERS: Physician Assistant; Emergency Provider Emergency Medicine; PCP Nurse Practitioner Family
DX: U07.1 COVID-19 (principal)
CPT/HCPCS: 71045; 87502; 87635; 87651; 99283; 99284

== ENCOUNTER 2023-04-10 15:22 | Outpatient (REF) | payer MEDICAID, SELFPAY ==
[2023-04-10 17:38] LABS: HCG Quantitative 15002 mIU/mL
== END 2023-04-10 15:23 | disposition home or self-care (01) ==
LOC: HO.HHCL 15:22
PROVIDERS: Visit Provider Internal Medicine
DX: Z34.90 Encounter for supervision of normal pregnancy, unspecified, unspecified trimester (principal)
CPT/HCPCS: 36415; 84702

== ENCOUNTER 2023-05-07 15:34 | Outpatient (REF) | payer MEDICAID, SELFPAY ==
[2023-05-07 18:12] LABS: Free T4 (Free Thyroxine) 1.02 ng/dL (0.71-1.85); Thyroid Stimulating Hormone 0.66 uIU/mL (0.32-4.0)
== END 2023-05-07 15:35 | disposition home or self-care (01) ==
LOC: HO.HHCL 15:34
PROVIDERS: Visit Provider Family Medicine
DX: E16.2 Hypoglycemia, unspecified (principal)
CPT/HCPCS: 36415; 84439; 84443

== ENCOUNTER 2023-05-31 18:36 | Outpatient (REF) | payer MEDICAID, SELFPAY | END 2023-05-31 18:37 | disposition home or self-care (01) | LOC: HO.HHCLNP 18:36 | PROVIDERS: Visit Provider Emergency Medicine | DX: J06.9 Acute upper respiratory infection, unspecified (principal) | CPT/HCPCS: 87070 ==

== ENCOUNTER 2024-03-31 10:52 | Outpatient (REF) | payer MEDICAID, SELFPAY ==
[2024-03-31 13:10] LABS: MANUAL DIFF FLAG NO
[2024-03-31 13:22] LABS: Basophils Absolute Auto 0.1 X10*3/uL (0.0-0.2); Basophils Percent Auto 0.9 % (0-2); Eosinophils Absolute Auto 0.1 X10*3/uL (0.0-0.4); Eosinophils Percent Auto 1.8 % (0-4); Hemoglobin 12.3 g/dl (12.0-16.0); Imm Gran Abs Auto 0.01 X10*3/uL (0.00-0.03); Imm Gran Pct Auto 0.2 % (0.0-0.4); Lymphocytes Percent Auto 34.3 % (20-40); Mean Corpuscular HGB Conc 33.2 g/dl (31.0-35.0); Mean Corpuscular Volume 87.3 fL (80.0-98.0); Mean Platelet Volume 9.6 fL (9.4-12.3); Monocytes Absolute Auto 0.4 X10*3/uL (0.1-1.2); Monocytes Percent Auto 7.7 % (2-11); Neutrophils Absolute Auto 3.1 x10*3/uL (2.0-8.3); Neutrophils Percent Auto 55.1 % (45-73); Platelet Count 289 X10*3/uL (160-400); Red Blood Count 4.24 X10*6/uL (4.20-5.50); Red Cell Distribution Width 12.9 % (11.0-16.0); White Blood Count 5.7 X10*3/uL (4.8-10.8)
[2024-03-31 13:49] LABS: Alanine Aminotransferase 11 U/L (0-31); Albumin Level 4.7 g/dL (3.5-5.0); Alkaline Phosphatase 79 U/L (39-117); Anion Gap 11 (12-20); Aspartate Amino Transferase 19 U/L (5-31); Bilirubin Total 0.3 mg/dL (0.0-1.0); Blood Urea Nitrogen 12 mg/dL (9-16); Carbon Dioxide 26 mmol/L (22-29); Chloride 108 mmol/L (96-108); Estimated Glomerular Filt Rate > 60; Glucose Random 89 mg/dL (60-115); Iron 55 mcg/dL (30-160); Percent Iron Saturation 26 % (15-50); Potassium 3.6 mmol/L (3.3-5.1); Sodium 141 mmol/L (135-145); Total Iron Binding Capacity 213 mcg/dL (228-428); Total Protein 7.3 g/dL (6.5-8.0); Unsaturated Iron Binding 158 ug/dL
[2024-03-31 13:53] LABS: Ferritin 42 ng/mL (10-122); TSH reflex Free T4 1.71 uIU/mL (0.32-4.0); Vitamin D 25-OH Total 55.7 ng/mL (>30)
[2024-03-31 14:19] LABS: Folate > 20.0 ng/mL (> or = 4.0); Vitamin B12 392 pg/mL (200-900)
== END 2024-03-31 10:53 | disposition home or self-care (01) ==
LOC: HO.HHCL 10:52
PROVIDERS: Visit Provider Family Medicine
DX: D50.0 Iron deficiency anemia secondary to blood loss (chronic) (principal); E55.9 Vitamin D deficiency, unspecified
CPT/HCPCS: 36415; 80053; 82306; 82607; 82728; 82746; 83540; 84443; 85025

== ENCOUNTER 2024-07-07 15:57 | Outpatient (REF) | payer MEDICAID, SELFPAY ==
[2024-07-07 18:28] LABS: TSH reflex Free T4 0.78 uIU/mL (0.32-4.0)
== END 2024-07-07 15:58 | disposition home or self-care (01) ==
LOC: HO.HHCL 15:57
PROVIDERS: Visit Provider Family Medicine
DX: R63.4 Abnormal weight loss (principal)
CPT/HCPCS: 36415; 84443

== ENCOUNTER 2025-04-27 15:08 | Outpatient (REF) | payer MEDICAID, SELFPAY ==
[2025-04-27 16:15] LABS: MANUAL DIFF FLAG NO
[2025-04-27 16:28] LABS: Hematocrit 36.2 % (37.0-47.0); Hemoglobin 12.3 g/dl (12.0-16.0); Imm Gran Abs Auto 0.02 X10*3/uL (0.00-0.03); Imm Gran Pct Auto 0.2 % (0.0-0.4); Lymphocytes Absolute Auto 1.7 X10*3/uL (1.2-4.9); Mean Corpuscular HGB Conc 34.0 g/dl (31.0-35.0); Mean Corpuscular Hemoglobin 29.6 pg (27.0-33.0); Mean Corpuscular Volume 87.0 fL (80.0-98.0); NRBC Abs Auto 0.000 X10*3/uL (0.0-0.012); NRBC Pct Auto 0.0 /100WBC (0.0-0.2); Platelet Count 300 X10*3/uL (160-400); Red Blood Count 4.16 X10*6/uL (4.20-5.50); White Blood Count 8.3 X10*3/uL (4.8-10.8)
[2025-04-27 16:40] LABS: Alanine Aminotransferase 18 U/L (0-31); Albumin Level 4.8 g/dL (3.5-5.0); Alkaline Phosphatase 69 U/L (39-117); Anion Gap 11 (12-20); Aspartate Amino Transferase 18 U/L (5-31); Blood Urea Nitrogen 16 mg/dL (9-16); Calcium 10.1 mg/dL (8.4-10.2); Carbon Dioxide 26 mmol/L (22-29); Chloride 106 mmol/L (96-108); Estimated Glomerular Filt Rate > 60; Iron 59 mcg/dL (30-160); Percent Iron Saturation 28 % (15-50); Potassium 3.8 mmol/L (3.3-5.1); Sodium 139 mmol/L (135-145); Total Iron Binding Capacity 211 mcg/dL (228-428); Total Protein 7.3 g/dL (6.5-8.0); Unsaturated Iron Binding 152 ug/dL
[2025-04-27 16:58] LABS: Ferritin 85 ng/mL (10-122)
[2025-04-27 17:10] LABS: Folate > 20.0 ng/mL (> or = 4.0); Vitamin B12 407 pg/mL (200-900)
== END 2025-04-27 15:09 | disposition home or self-care (01) ==
LOC: HO.HHCL 15:08
PROVIDERS: PCP Family Medicine; Visit Provider Family Medicine
DX: R63.4 Abnormal weight loss (principal); Z91.89 Other specified personal risk factors, not elsewhere classified
CPT/HCPCS: 36415; 80053; 82306; 82607; 82728; 82746; 83540; 84443; 85025

== ENCOUNTER 2025-05-01 11:40 | Outpatient (REF) | payer MEDICAID, SELFPAY ==
--- OUTSIDE RECORDS SUMMARY | 2025-04-27 15:45 | XMS_ITS | Encounter Summary ---
Author Organization [employer] Address [address] [place] [address] Care Team Providers Care Sales Inspector Name Role Phone Ramona Bernardo MD Primary Care Provider [phone] Encounter Details Date Type Department Care Team (Late st Contact Info) Description 04/27/2025 3:45 PM EDT Office Visit [facility] [address] [place] [address] Ramona Bernardo MD [address] [place] [address] Underweight (Primary Dx); Encounter for immunization Social History Tobacco Use Types Packs/Day Years Used Date Smoking Tobacco: Never Passive Smoke Exposure: Never Smokeless Tobacco: Never Depression Answer Date Recorded Patient Health Questionnaire-9 Score 0 04/27/2025 Patient Health Questionnaire-9 Score 0 04/27/2025 Last PHQ-9: Questionnaire Data Not on file 0 04/27/2025 Housing Stability Answer Date Recorded What is your housing situation today? I have agatha hoffman 02/23/[address] you li ve. Do you have problems with any of the following? None of the above 02/23/2025 Food Insecurity Answer Date Recorded Within the past 12 months, y ou worried that your food would run out before you got money to buy more: Never True 02/23/2025 Within the past 12 months,th e food you bought just didn't last and you didn't have enough money to get more: Never True Transportation Answer Date Recorded In the past 12 months, has l ack of transportation kept you from medical appts, meetings, work or from getting things needed for daily living? No 02/23/2025 Utilities Answer Date Recorded In the past 12 months, has t he electric, gas, oil or water company threatened to shut off services in your home? No 02/23/2025 Depression Answer Date Recorded Patient Health Questionnaire-2 Score 0 04/27/2025 Internet Access Answer Date Recorded Internet Access Q1 Yes 02/23/2025 Internet Access Q2 Not on file 02/23/2025 Comments No Sex and Gender Information Value Date Recorded Sex Assigned at Female 06/05/2022 10:35 AM EDT Legal Sex Female 10:35 AM EDT Gender Identity Female 10/29/2022 11:41 AM EDT Sexual Orientation Straight 10/29/2022 11 :41 AM EDT documented as of this encounter Last Filed Vital Signs Vital Sign Reading Time Taken Comments Blood Pressure 96/66 04/27/2025 3:37 PM EDT Pulse 96 04/27/2025 3:37 PM EDT Temperature 37.2 C (98.9 F) 04/27/2025 3:37 PM EDT Respiratory Rate 20 04/27/2025 3:37 PM EDT Oxygen Saturation 98% 04/27/2025 3:37 PM EDT Inhaled Oxygen Concentration - - Weight 41.5 kg (91 lb 9.6 oz) 04/27/2025 3:37 PM EDT Height - - Body Mass Index 16.21 03/02/2025 3:17 PM EDT documented in this encounter Functional Status * Over the past 2 weeks, how often have you been bothered by any of the following problems? Question Answer Date of Assessment Author Patient Health Questionnaire -2 Score 0 04/27/2025 4:34 PM EDT Renate Carrasco MA * Little interest or pleasure in doing things Answer Date of Assessment Author Not at all 04/27/2025 4:34 PM EDT Virginie Carrasco MA * Feeling down, depressed, or hopeless Answer Date of Assessment Author Not at all 04/27/2025 4:34 PM EDT Virginie Carrasco MA * Trouble falling or staying asleep, or sleeping too much Answer Date of Assessment Author Not at all 04/27/2025 4:34 PM EDT Virginie Carrasco MA * Feeling tired or having little energy Answer Date of Assessment Author Not at all 04/27/2025 4:34 PM EDT Virgiine Carrasco MA * Poor appetite or overeating Answer Date of Assessment Author Not at all 04/27/2025 4:34 PM EDT Virginie Carrasco MA * Feeling bad about yourself - or that you are a failure or have let yourself or your family down Answer Date of Assessment Author Not at all 04/27/2025 4:34 PM EDT Virginie Carrasco MA * Trouble concentrating on things, such as reading the newspaper or watching television Answer Date of Assessment Author Not at all 04/27/2025 4:34 PM TRISTENT Virginie Carrasco MA * Moving or speaking so slowly that other people could have noticed? Or the opposite - being so fidgety or restless that you have been moving around a lot more than usual. Answer Date of Assessment Author Not at all 04/27/2025 4:34 PM TRISTENT Virginie Carrasco MA * Thoughts that you would be better off or hurting yourself in some way Answer Date of Assessment Author Not at all 04/27/2025 4:34 PM Virginie Lobo MA * Patient Health Questionnaire-9 Score Answer Date of Assessment Author 0 04/27/2025 4:34 PM Virginie Lobo MA * Over the last 2 weeks, how often have you been bothered by any of the following problems? Question Answer Date of Assessment Author Feeling nervous, anxious, or on edge 0 04/27/2025 4:34 PM TRISTENT Renate Carrasco MA Not being able to stop or co ntrol worrying 0 04/27/2025 4:34 PM TRISTENT Renate Carrasco MA Worrying too much about diff erent things 0 04/27/2025 4:34 PM TRISTENT Renate Carrasco MA Trouble relaxing 0 04/27/2025 4:34 PM EDT Renate Estevez MA Being so restless that it is hard to sit still 0 04/27/2025 4:34 PM EDT Renate Carrasco MA Becoming easily annoyed or irritable 0 04/27/2025 4:34 PM EDT Renate Carrasco MA Feeling afraid as if somethi ng awful might happen 0 04/27/2025 4:34 PM EDT Renate Carrasco MA TRAVIS-7 Total Score 0 04/27/2025 4:34 PM EDT Renate Carrasco MA documented as of this encounter Miscellaneous Notes * Assessment & Plan Note - Ramona Bernardo MD - 04/27/2025 6:21 AM EDTAssociated Problem(s): Underweight - normal TSH - likely hereditary thin-frame - continue adequate nutritional intake; consider nutritional supplement, such as Boost or Ensure documented in this encounter Plan of Treatment Upcoming Encounters Date Type Department Care Team (Late st Contact Info) Description 06/11/2025 10:30 AM EST Office Visit [facility] [address] [place] [address] TarJoie jenkins, OD [address] [place] [address] documented as of this encounter Visit Diagnoses Diagnosis Underweight- Primary Encounter for immunization documented in this encounter Additional Health Concerns Assessment Noted Time PHQ-9 Depression Total Score: 0 04/27/20 25 4:34 PM EDT documented as of this encounter Care Teams Sales Inspector Relationship Specialty Start Date End Date Ramona Bernardo MD [address] [place] [address] PCP - General Family Medicine 04/10/23 documented as of this encounter
--- OUTSIDE RECORDS SUMMARY | 2025-05-01 13:37 | XMS_ITS | Clinical Summary ---
Author Organization [employer] Address [address] [facility] [address] [place] [address] Care Team Providers Care Gray Mixing Operator Name Role Phone Ramona Bernardo MD Primary Care Provider [phone] Allergies No known active allergies Medications * This document contains information received from the source organization and may not represent a complete record from that organization. sodium chloride (Show Low Nasal [place]) 0.65 % nasal sprayIndications:A cute bacterial rhinosinusitis 1-2 sprays on each nostril every 2-3 hours as needed for nasal congestion 30 mL 1 3 Active albuterol 108 (90 Base) MCG/ACT inhalerIndications :Mild intermittent reactive airway disease without complication Inhale 2 puffs every 6 (six) hours if needed for wheezing. 18 g 1 4 Active docusate sodium (Colace) 100 MG capsule Take 1 capsule (100 mg) by mouth 2 times daily. 60 capsule 3 4 Active COVID-19 At Home Antigen Test kit Use as directed 3 kit 1 4 Active fluticasone (Flonase) 50 MCG/ACT nasal spray Administer 1 spray into each nostril Once per day. 16 g 5 Active Vit-Fe Fumarate-FA (M-Razia Plus) 27-1 MG tabletIndications: , unspecified gestational age TAKE 1 TABLET BY MOUTH ONCE A DAY 90 tablet 5 Active Active Problems Problem Noted Date Diagnosed Date History of anemia 03/06/2025 Stress and adjustment reaction 03/06/2025 Assessment & Plan (03/06/2025 4:43 PM EDT): - patient declines evaluation by integrated behavioral health service - patient seems to have healthier coping skill, yet her weight is a concern - close follow up. Breast pain 03/06/2025 Assessment & Plan (03/06/2025 4:40 PM EDT): - no palpable mass - recheck at next visit Allergic rhinitis 12/16/2024 Assessment & Plan (03/06/2025 4:34 PM EDT): - continue fluticasone nasal prn - continue nasal saline prn Assessment & Plan (12/16/2024 7:18 PM EDT): Use nasal saline 4 times per day as needed runny nose Use Flonase once daily x 1 week Constipation 05/16/2024 Assessment & Plan (05/16/2024 7:12 AM EDT): - fiber-rich diet and adequate fluid intake - docusate prn Family history of Aida thyroiditis 05/16/20 24 Headache 02/05/2024 Assessment & Plan (03/06/2025 4:38 PM EDT): - not frequent - continue acetaminophen PRN Assessment & Plan (02/05/2024 11:38 AM EDT): - not frequent - continue acetaminophen PRN - will follow-up in 4 months Asthma 05/14/2023 Assessment & Plan (03/06/2025 4:38 PM EDT): - it has not been active for many years - since she is , it can become active again; patient has albuterol HFA on hand just in case Assessment & Plan (11/17/2023 5:15 AM EDT): - it has not been active for many years - since she is , it can become active again; patient has albuterol HFA on hand just in case Assessment & Plan (05/14/2023 2:21 PM EDT): - it has not been active for many years - since she is , it can become active again; pt will have albuterol HFA on hand just in case Underweight 05/14/2023 Assessment & Plan (04/29/2025 9:36 PM EDT): - normal TSH - likely hereditary thin-frame - continue adequate nutritional intake; consider nutritional supplement, such as Boost or Ensure Assessment & Plan (03/06/2025 4:36 PM EDT): - normal TSH - 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 She has had some work-up which has been negative. 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 - unlikely to have eating disorder - high risk for nutritional deficiency. Encourage to eat calorie-dense foods, small amount, more frquently - consider nutritional supplement - check lab Assessment & Plan (05/14/2023 2:26 PM EDT): - she is not restricting her food intake and she has always been thin. She has had some work-up which has been negative. 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 - unlikely to have eating disorder - high risk for nutritional deficiency during ; encourage to eat calorie-dense foods, small amount, more frquently - check TSH Vitamin D deficiency 05/06/2023 Assessment & Plan (03/06/2025 4:35 PM EDT): - currently taking vitamin. Continue vitamins. - check lab and add vitamin D supplement as needed Assessment & Plan (11/17/2023 5:16 AM EDT): - currently taking vitamin. Continue vitamins. Assessment & Plan (05/14/2023 2:20 PM EDT): - currently taking vitamin. Continue vitamins. Resolved Problems Problem Noted Date Diagnosed Date Resolved Date Acute conjunctivitis of both eyes 12/16/2024 03/06/2025 Assessment & Plan (12/16/2024 7:18 PM EDT): Keep eyes clean and dry, can wash with baby shampoo 3 times daily, apply erythromycin ointment after washing eyes x 1 week Can apply ice compresses to both eyes for relief Vision problem 11/05/2023 05/26/2024 Assessment & Plan (11/05/2023 10:08 PM EDT): Referral placed to [facility] Iron deficiency anemia due t o chronic blood loss 05/06/2023 03/06/2025 Assessment & Plan (05/16/2024 7:13 AM EDT): - most recent lab showed normal CBC - continue vitamin Assessment & Plan (02/05/2024 11:36 AM EDT): - most recent lab after childbirth showed mild anemia. Check labs - continue vitamin Assessment & Plan (11/17/2023 5:17 AM EDT): - she had lab with her OB - continue vitamin Assessment & Plan (05/14/2023 2:23 PM EDT): - she had lab with her OB - continue vitamin 04/10/2023 02/08/2024 Assessment & Plan (11/17/2023 5:15 AM EDT): - 36 wks 2 days gestational age, ALICIA 12/02/23 - continue prental vitamins - OB provider: [facility] - close monitoring by OB for possible growth restriction - reviewed si/sx to seek a prompt medical attention Assessment & Plan (05/14/2023 2:31 PM EDT): - continue prental vitamins - OB provider: [facility] - reviewed si/sx to seek a prompt medical attention - reviewed the importance of adequate nutrition and rest - pt has mild hyperemesis gravidurum. Continue treatment plan per OB. Assessment & Plan (04/10/2023 3:46 PM EDT): vitamins counseling done no alcohol smoking, no raw food OBGYN referral due to underweight I Refer her to [facility] Encounters Date Type Department Care Team Description 04/27/2025 3:45 PM EDT Office Visit [facility] [address] [place] [address] [phone] Ramona Bernardo MD Underweight (Primary Dx); Encounter for immunization 04/27/2025 Travel 04/24/2025 Telephone [facility] [address] [place] [address] [phone] Kath Lopez MA 03/25/2025 Telephone [facility] [address] [place] [address] [phone] Aleena Araiza RN NTTS Triage 03/02/2025 3:00 PM EDT Office Visit [facility] [address] [place] [address] [phone] Ramona Bernardo MD Routine general medical examination at a health care facility (Primary Dx); Weight loss; Abdominal bloating; At high risk for inadequate nutritional intake; Dietary counseling; Exercise counseling; Underweight; Vitamin D deficiency; Hypoglycemia; Mild intermittent asthma without complication; Nonintractable headache, unspecified chronicity pattern, unspecified headache type; History of anemia; Allergic rhinitis, unspecified seasonality, unspecified trigger; Stress and adjustment reaction; Breast pain 03/02/2025 Refill [facility] [address] [place] [address] [phone] Ramona Bernardo MD , unspecified gestational age 0703/02/2025 Travel 02/27/2025 Telephone [facility] [address] [place] [address] Ramona Bernardo MD chart prep 02/23/2025 Patient Outreach [facility] [address] [place] [address] Ramona Bernardo MD Pre-visit Planning (SDOH Screening negative and Tobacco screening negative) from Last 3 Months Immunizations Immunization Administration Dates Next Due DTaP 02/25/2005, 2,2001,05/20,2001 HPV 9-Valent 07/22/2012,03/11/2012,10/08/2011 HPV, Quadrivalent 07/22/2012,03/11/2012,10/08/19 12 Hep A, Adult 10/08/2011 Hep A, Unspecified 03/11/2012 Hep B, Unspecified 2001,2001 Hep B, adult 2001 HiB, unspecified 05/29/2002,02/05/2002, 1 Hib (PRP-T) 2001 IPV 02/25/2005, 1,2001,03/19 Influenza injectable quadriv alent IIV4 with preservative 11/18/2009 Influenza injectable quadriv alent preservative free 07/19/2021,06/04/2019 Influenza, IIV3, injectable 07/19/2021,1 ,11/18/2009,07/21 Influenza, injectable, quadr ivalent, preservative free, pediatric 07/21/2009 Influenza, seasonal, injecta ble, preservative free 04/27/2025,05/06/2024 MMR 11/29/2023 MMRV 02/05/2002 Meningococcal ACWY, unspecified 03/11/2012 Meningococcal MCV4P ACYW-135 03/11/2012 Pneumococcal Conjugate PCV 13 11/20/2003 TD (adult), 2 Lf tetanus tox oid, preservative free, adsorbed 03/11/2012 Tdap 09/10/2023,03/11/2012 Varicella 03/11/2012,02/25/2005 Family History Medical History Relation Name Comments Aida's thyroiditis Mother Strabismus Sister Relation Name Status Comments Mother Sister Social History Tobacco Use Types Packs/Day Years Used Date Smoking Tobacco: Never Passive Smoke Exposure: Never Smokeless Tobacco: Never Tobacco Cessation:Counseling Given: Not Answered Depression Answer Date Recorded Patient Health Questionnaire-9 [...] Orientation Straight 10/29/2022 11 :41 AM EDT Last Filed Vital Signs Vital Sign Reading Time Taken Comments Blood Pressure 96/66 04/27/2025 3:37 PM EDT Pulse 96 04/27/2025 3:37 PM EDT Temperature 37.2 C (98.9 F) 04/27/2025 3:37 PM EDT Respiratory Rate 20 04/27/2025 3:37 PM EDT Oxygen Saturation 98% 04/27/2025 3:37 PM EDT Inhaled Oxygen Concentration - - Weight 41.5 kg (91 lb 9.6 oz) 04/27/2025 3:37 PM EDT Height 160.1 cm (5' 3.04 ) 03/02/2025 3:17 PM ED T Body Mass Index 16.21 03/02/2025 3:17 PM EDT Plan of Treatment Upcoming Encounters Date Type Department Care Team (Late st Contact Info) Description 06/11/2025 10:30 AM EST Office Visit [facility] [address] [place] [address] Alpeshgregory Joie, OD [address], [place] [phone] Health Maintenance Due Date Last Done Comments Pneumococcal Vaccine: Pediatrics (0 to 5 Years) and At-Risk Patients (6 to 49) Years (2 of 2 - PPSV23) 2007 11/20/2003 Hepatitis A Vaccines (2 of 2 - 2-dose series) 09/11/2012 03/11/2012, 10/08/2011 Family Planning (PISQ) 01/12/2016 COVID-19 Vaccine ( season) 2025 Pap Smear 11/02/2025 11/02/2022 SDOH Screening 02/23/2026 02/23/2025 Alcohol/Substance Use Screening 03/02/2026 03/02/2025 Disability Screening 03/02/2026 03/02/2025 Depression Screening 04/27/2026 04/27/2025, 04/27/20 25 Tobacco Screening 04/27/2026 04/27/2025 DTaP/Tdap/Td Vaccines (8 - Td or Tdap) 09/10/2033 09/10/2023, 03/11/2012, 03/11/2012, Additional history exists Zoster Vaccines (1 of 2) 2051 RSV Patients and Patients Aged 60 years or older (1 - 1-dose 75+ series) 01/12/2076 Hepatitis B Vaccines Completed 2001, 2001, 2001 HIB Vaccines Completed 05/29/2002, 10/2001, 2001, Additional history exists IPV Vaccines Completed 02/25/2005, 07/07, 2001, Additional history exists Meningococcal Vaccine Aged Out 03/11/2012, 012 No longer eligible based on patient's age to complete this topic HPV Vaccines Completed 07/22/2012, 07/06, 03/11/2012, Additional history exists HIV Screening Completed 08/14/2019 Hepatitis C Screening Completed 07/19/2021, 020 Influenza Vaccine Completed 04/27/2025, , 07/19/2021, Additional history exists Meningococcal B Vaccine Aged Out No l onger eligible based on patient's age to complete this topic RSV under 20 months Aged Out No longe r eligible based on patient's age to complete this topic Rotavirus Vaccines Aged Out No longer eligible based on patient's age to complete this topic Procedures Procedure Name Priority Date/Time Associated Diagnosis Comments IRON AND TOTAL IRON BINDING CAPACITY Routine 04/27/2025 3:11 PM EDT At high risk for inadequate nutritional intake FERRITIN Routine 04/27/2025 3:11 PM EDT At high risk for inadequate nutritional intake VITAMIN B12/FOLATE, SERUM PANEL Routine 04/27/2025 3:11 PM EDT At high risk for inadequate nutritional intake VITAMIN D,25-OH,TOTAL,IA Routine 04/27/2025 3:11 PM EDT Weight loss At high risk for inadequate nutritional intake TSH W/REFLEX TO FT4 Routine 04/27/2025 3 :11 PM EDT Weight loss COMPREHENSIVE METABOLIC PANEL Routine 04/27/2025 3:11 PM EDT Weight loss CBC WITH AUTO DIFFERENTIAL Routine 04/27/2025 3:11 PM EDT Weight loss History of anemia IMAGE-GUIDED PAP W/AGE BASED SCR,W/CT/NG/TRICH Routine 11/02/2022 1:53 PM EDT Screening examination for venereal disease Cervical cancer screening [facility] HISTORICAL HEPATITIS C AB W/REFL TO HCV RNA, QN, PCR Routine 07/19/2021 2:09 PM EST [facility] HISTORICAL HIV AB/AG Routine 08/14/2019 11:49 AM EST from Last 3 Months or Most Recently Relevant to Health Maintenance Results * Vitamin D, 25-Hydroxy, Total, Immunoassay (04/27/2025 3:11 PM EDT) Vitamin D 25-OH Total 44.9 >30 ng/mL [facility] Comment: Health Based Reference Values*< 20 ng/mL Npvfohugg31-85 ng/mL Insufficient> 30 ng/mL Sufficient*Kilo RAYMUNDO. N Engl J Med. 2007;357:266-280There is no well-established upper level of normal vitamin Dlevels. Some laboratories use 50 ng/mL as an upper limit ofnormal. However, toxicity is patient-dependent and may occurat any level. Careful correlation with the patient'spresentation is necessary and, if there is concern forvitamin D toxicity, treatment should be consideredirrespective of the serum level.Care must be taken in interpreting Vitamin D results fromdifferent laboratories and methodologies. Published datademonstrated that results from patients undergoinghemodialysis may show a negative bias when tested withvarious automated 25-OH vitamin D assays when compared toLC-MS/MS.When testing samples from patients whose predominant form ofVitamin D is Vitamin D2, such as patients receiving VitaminD2 supplementation, results that are subtherapeutic shouldbe confirmed with another method such as LC-MS/MS. Blood Venous blood specimen / Unknown 04/27/2025 3:11 PM EDT 04/27/2025 4:09 PM EDT us Ramona Bernardo MD LAB BLOOD ORDERABLES Final Resul t [facility] [address] [place] [phone] [phone] * Vitamin B12 (Cobalamin) and Folate Panel, Serum (04/27/2025 3:11 PM EDT) Pathologist [facility] Vitamin B12 407 200 - 900 pg/mL [facility] Comment:NORMAL 200-900 PG/ML INDETERMINATE 160-199 PG/ML DEFICIENT < 160 PG/ML Folate >20.0 > or = 4.0 ng/mL [facility] Comment:Reference Values:> o r = 4.0 ng/mL< 4.0 ng/mL suggests folate deficiency Methotrexate, aminopterin and folinic acid(leucovorin) are chemotherapeutic agents whose molecularstructures are similar to folate; therefore, the Architectfolate assay cannot be used for patients using these drugs. Blood 04/27/2025 3:11 PM EDT 04/27/2025 4:09 PM EDT Ramona Bernardo MD LAB BLOOD ORDERABLES Final Resul t Performing Organization Address [facility]/ZIP Co de Phone Number [facility] [address] [place] [phone] * TSH with Reflex to Free T4 (04/27/2025 3:11 PM EDT) Pathologist [facility] TSH reflex Free T4 0.81 0.32 - 4.0 uIU/mL [facility] Blood 04/27/2025 3:11 PM EDT 04/27/2025 4:09 PM EDT Ramona Bernardo MD LAB BLOOD ORDERABLES Final Resul t [facility] [address] [place] [address] [phone] * (ABNORMAL) CBC auto differential (04/27/2025 3:11 PM EDT) Pathologist [facility] White Blood Count 8.3 4.8 - 10.8 X10*3/uL [facility] Red Blood Count 4.16(L) 4.20 - 5.50 X10*6/uL [facility] Hemoglobin 12.3 12.0 - 16.0 g/dl [facility] Hematocrit 36.2(L) 37.0 - 47.0 % [facility] Mean Corpuscular Volume 87.0 80.0 - 98.0 fL [facility] Mean Corpuscular Hemoglobin 29.6 27.0 - 33.0 pg [facility] Mean Corpuscular HGB Conc 34.0 31.0 - 35.0 g/dl [facility] Red Cell Distribution Width 12.9 11.0 - 16.0 % [facility] Platelet Count 300 160 - 400 X10*3/uL [facility] Mean Platelet Volume 9.5 9.4 - 12.3 fL [facility] Neutrophils Percent Auto 71.4 45 - 73 % [facility] Imm Gran Pct Auto 0.2 0.0 - 0.4 % [facility] Lymphocytes Percent Auto 20.6 20 - 40 % [facility] Monocytes Percent Auto 6.7 2 - 11 % [facility] Eosinophils Percent Auto 0.5 0 - 4 % [facility] Basophils Percent Auto 0.6 0 - 2 % [facility] NRBC Pct Auto 0.0 0.0 - 0.2 /100WBC [facility] Neutrophils Absolute Auto 5.9 2.0 - 8.3 x10*3/uL [facility] Imm Gran Abs Auto 0.02 0.00 - 0.03 X10*3/uL [facility] Lymphocytes Absolute Auto 1.7 1.2 - 4.9 X10*3/uL [facility] Monocytes Absolute Auto 0.6 0.1 - 1.2 X10*3/uL [facility] Eosinophils Absolute Auto 0.0 0.0 - 0.4 X10*3/uL [facility] Basophils Absolute Auto 0.1 0.0 - 0.2 X10*3/uL [facility] NRBC Abs Auto 0.000 0.0 - 0.012 X10*3/uL [facility] Blood Venous blood specimen / Unknown 04/27/2025 3:11 PM EDT 04/27/2025 4:09 PM EDT Ramona Bernardo MD LAB BLOOD ORDERABLES Final Resul t Performing Organization Address [facility]/ZIP Co de Phone Number [facility] [address] [place] [phone] * (ABNORMAL) Iron And Total Iron Binding Capacity (04/27/2025 3:11 PM EDT) Iron 59 30 - 160 mcg/dL [facility] Total Iron Binding Capacity 211(L) 228 - 428 mcg/dL [facility] Percent Iron Saturation 28 15 - 50 % [facility] Unsaturated Iron Binding 152 ug/dL [facility] Blood Venous blood specimen / Unknown 04/27/2025 3:11 PM EDT 04/27/2025 4:09 PM EDT us Ramona Bernardo MD LAB BLOOD ORDERABLES Final Resul t Performing Organization Address [facility]/ZIP Co de Phone Number [facility] [address] [place] [phone] * Ferritin (04/27/2025 3:11 PM EDT) Pathologist [facility] Ferritin 85 10 - 122 ng/mL [facility] Blood Venous blood specimen / Unknown 04/27/2025 3:11 PM EDT 04/27/2025 4:09 PM EDT Ramona Bernardo MD LAB BLOOD ORDERABLES Final Resul t Performing Organization Address [facility]/ZIP Co de Phone Number [facility] [address] [place] [address] [phone] * (ABNORMAL) Comprehensive Metabolic Panel (04/27/2025 3:11 PM EDT) Pathologist [facility] Sodium 139 135 - 145 mmol/L [facility] Potassium 3.8 3.3 - 5.1 mmol/L [facility] Chloride 106 96 - 108 mmol/L [facility] Carbon Dioxide 26 22 - 29 mmol/L [facility] Anion Gap 11(L) 12 - 20 [facility] Urea Nitrogen (BUN) 16 9 - 16 mg/dL [facility] Creatinine, Serum 0.76 0.5 - 1.4 mg/dL [facility] Estimated Glomerular Filt Rate >60 [facility] Comment:Chronic Kidney Disea se: Estimated GFR < 60 mL/min/[id number] Kidney Disease: Estimated GFR < 15 mL/min/1.73m2 Glucose 68 60 - 115 mg/dL [facility] Calcium 10.1 8.4 - 10.2 mg/dL [facility] Bilirubin, Total 0.5 0.0 - 1.0 mg/dL [facility] Aspartate Amino Transferase 18 5 - 31 U/L [facility] Alanine Aminotransferase 18 0 - 31 U/L [facility] Total Protein 7.3 6.5 - 8.0 g/dL [facility] Albumin Level 4.8 3.5 - 5.0 g/dL [facility] Alkaline Phosphatase 69 39 - 117 U/L [facility] Blood Venous blood specimen / Unknown 04/27/2025 3:11 PM EDT 04/27/2025 4:09 PM EDT us Ramona Bernardo MD LAB BLOOD ORDERABLES Final Resul t [facility] [address] [place] [phone] * Image-Guided Pap with Age-Based Screening??with CT/NG,??Trichomonas (11/02/2022 1:53 PM EDT) Comment [employer] Comment: This order for age-based cervical cancer and STI screening follows ACOG guidelines(PB 168, 140, TWG031). See individual assays for performing site location. Clinical Information: INITIAL PAP [facility] [employer] LMP: NONE GIVEN [employer] Prev. PAP: NONE GIVEN [facility] [place] [employer] Prev. BX: NO [facility] [place] [employer] SOURCE: None given [facility] [place] [employer] Statement Of Adequacy: [facility] [place] [employer] Comment: Satisfactory for evaluation. Endocervical/transformation zone component present. Age and/or menstrual status not provided Interpretation/Re sult: Negative for intraepithelial lesion or malignancy. [facility] [place] COMMENT: This Pap test has been evaluated with computer assisted technology. [facility] [place] Delinquency Prevention Social Worker: Eri est [employer] [place] Comment: YP, CT(ASCP) CT screening location: [place] [address] (Always Message) [facility] riskmethods [place] [employer] Comment: EXPLANATORY NOTE: The Pap is a screening test for cervical cancer. It is not a diagnostic test and is subject to false negative and false positive results. It is most reliable when a satisfactory sample, regularly obtained, is submitted with relevant clinical findings and history, and when the Pap result is evaluated along with historic and current clinical information. Chlamydia trachomatis RNA, TMA, Urogenital NOT DETECTED NOT DETECTED [facility] [place] [employer] Neisseria gonorrhoeae RNA, TMA, Urogenital NOT DETECTED NOT DETECTED [facility] [place] (Always Message) [facility] [place] [employer] Comment: The analytical performance characteristics of this assay, when used to test SurePath(TM) specimens have been determined by [facility]. The modifications have not been cleared or approved by the FDA. This assay has been validated pursuant to the CLIA regulations and is used for clinical purposes. For additional information, please refer to [email or web address] (This link is being provided for information/ educational purposes only.) Trichomonas vaginalis, QL, TMA, PAP Vial NOT DETECTED NOT DETECTED [employer] Comment: The analytical performance characteristics of this assay have been determined by [facility]. The modifications have not been cleared or approved by the FDA. This assay has been validated pursuant to the CLIA regulations and is used for clinical purposes. For additional information, please refer to [email or web address] [email or web address] (This link is being provided for information/ educational purposes only.) Cytology specimen container (physical object) 11/02/2022 1:53 PM EDT 11/03/2022 3:21 AM EDT Genevieve Monreal CN LAB CYTOLOGY ORDERABLES F inal Result Performing Organization Address City/[facility]/ZIP Co de Phone Number [facility] [address], [place] [address] [facility] [address] [place] [phone] * HEPATITIS C AB W/REFL TO HCV RNA, QN, PCR (07/19/2021 2:09 PM EST) Pathologist [facility] HEPATITIS C ANTIBODY NON-REACT TOÑO NON-REACT TOÑO [facility] INDEX 0.02 <1.00 [facility] Comment: HCV antibody was non-reactive. There is no laboratory evidence of HCV infection. In most cases, no further action is required. However, if recent HCV exposure is suspected, a test for HCV RNA (test code [id number]) is suggested. For additional information please refer to http://education.Club 42cm/faq/[email or web address] (This link is being provided for informational/ educational purposes only.) 07/19/2021 2:09 PM EST Fatmata HAMILTONP HISTORICAL/NON ORDERABLE LABS Final Result [facility] [address] * HIV AB/AG (08/14/2019 11:49 AM EST) HIV AG/AB NONREACTIVE [facility] Comment: HIV-1 p24 Ag and/or HIV-1/HIV-2 Ab not detected. A test result that is nonreactive does not exclude the possibility of exposure to or infection with HIV-1 and/or HIV-2. Nonreactive results in this assay for individuals with prior exposure to HIV-1 and/or HIV-2 may be due to antigen and antibody levels that are below the limit of detection of this assay. The [facility] HIV Ag/Ab Combo assay result and supplemental assay results should be interpreted in conjunction with the patient's clinical presentation, history and other laboratory results. If the results are inconsistent with clinical evidence, additional testing is suggested to confirm the result. 08/14/2019 11:4 9 AM EST us Historical Provider HISTORICAL/NON ORDERABLE LABS Final Result [facility] [address] from Last 3 Months or Most Recently Relevant to Health Maintenance Insurance [employer] Care Teams Gray Mixing Operator Relationship Specialty Start Date End Date Ramona Bernardo MD [address] [place] [id number] PCP - General Family Medicine 04/10/23
--- OUTSIDE RECORDS SUMMARY | 2025-05-01 13:37 | XMS_ITS | Encounter Summary ---
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 Social History Tobacco Use Types Packs/Day Years Used Date Smoking Tobacco: Never Passive Smoke Exposure: Never Smokeless Tobacco: Never Comments Yes Sex and Gender Information Value Date Recorded Sex Assigned at Female 06/05/2022 10:35 AM EDT Legal Sex Female 10:35 AM EDT Gender Identity Female 10/29/2022 11:41 AM EDT Sexual Orientation Straight 10/29/2022 11 :41 AM EDT documented as of this encounter Plan of Treatment Upcoming Encounters Date Type Department Care Team (Late st Contact Info) Description 06/11/2025 10:30 AM EST Office Visit [facility] [address] [place] [address] Joie Aguirre, OD [address] [place] [address] documented as of this encounter Visit Diagnoses Diagnosis Mild intermittent reactive airway disease without complication documented in this encounter Care Teams Engineering Librarian Relationship Specialty Start Date End Date Ramona Bernardo MD [address] [place] [id number] PCP - General Family Medicine 04/10/23 documented as of this encounter
--- OUTSIDE RECORDS SUMMARY | 2025-05-01 13:37 | XMS_ITS | Encounter Summary ---
Author Organization [employer] Address [address] [place] [address] Care Team Providers Care Inspector Floor Sub Assembly Name Role Phone Ramona Bernardo MD Primary Care Provider [phone] Encounter Details Date Type Department Care Team (Latest Contact Info) Description 04/27/2025 Travel Social History Tobacco Use Types Packs/Day Years [...] AM EDT documented as of this encounter Functional Status * Over the [...] 4:34 PM TRISTENT Virginie Carrasco MA * Feeling down, depressed, or hopeless Answer Date of Assessment Author Not at all 04/27/2025 4:34 PM TRISTENT Virginie Carrasco MA * Trouble falling or staying asleep, or sleeping too much Answer Date of Assessment Author Not at all 04/27/2025 4:34 PM Virginie Lobo MA * Feeling tired or having little energy Answer Date of Assessment Author Not at all 04/27/2025 4:34 PM Virginie Lobo MA * Poor appetite or overeating Answer Date of Assessment Author Not at all 04/27/2025 4:34 PM Virginie Lobo MA * Feeling bad about yourself - or that you are a failure or have let yourself or your family down Answer Date of Assessment Author Not at all 04/27/2025 4:34 PM Virginie Lobo MA * Trouble concentrating on things, such as reading the newspaper or watching television Answer Date of Assessment Author Not at all 04/27/2025 4:34 PM Virginie Lobo MA * Moving or speaking so slowly that other people could have noticed? Or the opposite - being so fidgety or restless that you have been moving around a lot more than usual. Answer Date of Assessment Author Not at all 04/27/2025 4:34 PM EDT Virginie Carrasco MA * Thoughts that you would be better off or hurting yourself in some way Answer Date of Assessment Author Not at all 04/27/2025 4:34 PM EDT Virginie Carrasco MA * Patient Health Questionnaire-9 Score Answer Date of Assessment Author 0 04/27/2025 4:34 PM EDT Virginie Carrasco MA * Over the last 2 weeks, how often have you been bothered by any of the following problems? Question Answer Date of Assessment Author Feeling nervous, anxious, or on edge 0 04/27/2025 4:34 PM EDT Renate Carrasco MA Not being able to stop or co ntrol worrying 0 04/27/2025 4:34 PM EDT Renate Carrasco MA Worrying too much about diff erent things 0 04/27/2025 4:34 PM EDT Renate Carrasco MA Trouble relaxing 0 04/27/2025 4:34 PM EDT Renate Estevez MA Being so restless that it is hard to sit still 0 04/27/2025 4:34 PM TRISTENT Renate Carrasco MA Becoming easily annoyed or irritable 0 04/27/2025 4:34 PM EDT Renate Carrasco MA Feeling afraid as if somethi ng awful might happen 0 04/27/2025 4:34 PM EDT Renate Carrasco MA TRAVIS-7 Total Score 0 04/27/2025 4:34 PM Renate Lobo MA documented as of this encounter Plan of Treatment Upcoming Encounters Date Type Department Care Team (Late st Contact Info) Description 06/11/2025 10:30 AM EST Office Visit [facility] [address] [place] [address] Joie Aguirre, OD [address] [place] [address] documented as of this encounter Visit Diagnoses Not on filedocumented in this encounter Additional Health Concerns Assessment Noted Time PHQ-9 Depression Total Score: 0 04/27/20 25 4:34 PM EDT documented as of this encounter Care Teams Inspector Floor Sub Assembly Relationship Specialty Start Date End Date Ramona Bernardo MD [address] [place] [id number] PCP - General Family Medicine 04/10/23 documented as of this encounter
== END 2025-05-01 11:41 | disposition home or self-care (01) ==
LOC: HO.HHCL 11:40
PROVIDERS: PCP Family Medicine; Visit Provider Family Medicine
DX: R14.0 Abdominal distension (gaseous) (principal)
CPT/HCPCS: 87338